=== PATIENT | male | born 1990 | race African-American/Black ===

== ENCOUNTER 2017-06-03 03:29 | Emergency (ER) | payer SELFPAY ==
[2017-06-03] MEDS ORDERED: HYDROCOD/APAP 5/325 PREPACK#6 BTL TAKEHOME ONE (03:33)
[2017-06-03] MEDS ORDERED: IBUPROFEN 800 MG TAB PO ONE (03:33)
[2017-06-03] MEDS ORDERED: HYDROCODONE/APAP 5/325 TAB PO ONE (03:33)
[2017-06-03 03:34] VITALS: TEMP 98.8
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
[2017-06-03 04:32] VITALS: BP 131/84; PULSE 85; RESP 18; O2SAT 94
== END 2017-06-03 04:55 | disposition home or self-care (01) ==
DX: S82.842A Displaced bimalleolar fracture of left lower leg, initial encounter for closed fracture (principal); W18.40XA Slipping, tripping and stumbling without falling, unspecified, initial encounter; Y99.8 Other external cause status; Y93.01 Activity, walking, marching and hiking

== ENCOUNTER 2017-11-11 16:07 | Inpatient (IN) | payer SELFPAY ==
[2017-11-11] MEDS ORDERED: IBUPROFEN 800 MG TAB PO ONE (16:58)
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
[2017-11-11] MEDS ORDERED: TDAP ADULT 0.5 ML INJ (BOOSTRIX) IM ONE (17:23)
[2017-11-11] MEDS ORDERED: ceFAZolin 2 GM in NS 100 ML IV ONE (17:24)
[2017-11-11] MEDS ORDERED: CEFAZOLIN 1 GM/DEXTROSE/50 ML BAG IV ONE ×2 (17:39→17:46)
[2017-11-11 18:20] LABS: PLATELET COUNT 280 10^3/uL (150-400)
[2017-11-11] MEDS ORDERED: ONDANSETRON 4 MG/2 ML VIAL IVP PRN ×2 (18:59→22:56)
[2017-11-11] MEDS ORDERED: D5W 1/2 NS W/ 20 KCl/L 1,000 ML IV SCH (19:00)
[2017-11-11] MEDS ORDERED: LR 1,000 ML IV SCH (19:00)
[2017-11-11] MEDS ORDERED: BACITRACIN 50,000 UNITS/10 ML SYR IRR ONE (21:31)
[2017-11-11] MEDS ORDERED: BUPIVACAINE 0.5% 30 ML SDV ONE (21:32)
--- NOTE | 2017-11-11 21:51 | PDANEPAE ---
ANE Past Medical History - Pulmonary History Hx Oxygen in Use at Home: No - Endocrine History Hx Diabetes: No ANE Review of Systems Review of Systems: ANE Patient History - Allergies Allergies/Adverse Reactions: Penicillins Allergy (Severe, Verified 11/11/17 16:30) - Home Medications Home Medications: NK [No Known Home Meds] 11/11/17 [Last Taken Unknown] - NPO status NPO Since - Liquids (Date): 11/11/17 NPO Since - Liquids (Time): 17:15 NPO Since - Solids (Date): 11/11/17 NPO Since - Solids (Time): 14:00 - Smoking Hx Smoking Status: Current every day smoker ANE Labs/Vital Signs - Labs Result Diagrams: 11/11/17 16:26 11/11/17 16:26 - Vital Signs Blood Pressure: 158/84 Heart Rate: 92 Respiratory Rate: 18 O2 Sat (%): 98 Height: 177.8 cm Weight: 85.729 kg ANE Physical Exam - Airway Neck exam: FROM Mallampati Score: Class 1 Mouth exam: normal dental/mouth exam - Pulmonary Pulmonary: no respiratory distress - Cardiovascular Cardiovascular: regular rate and rhythym - ASA Status ASA Status: II ANE Anesthesia Plan Anesthesia Plan: GA w LMA
[2017-11-11] MEDS ORDERED: RANITIDINE 50 MG/2 ML VIAL ONE (21:54)
[2017-11-11] MEDS ORDERED: fentaNYL 250 MCG/5 ML INJ ONE (21:54)
[2017-11-11] MEDS ORDERED: PROPOFOL 200 MG/20 ML VIAL ONE ×3 (21:54→22:34)
[2017-11-11] MEDS ORDERED: LIDOCAINE 2% 100 MG/5 ML SYR ONE (21:55)
[2017-11-11] MEDS ORDERED: METOCLOPRAMIDE 10 MG/2 ML VIAL ONE (21:55)
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
[2017-11-11] MEDS ORDERED: fentaNYL 100 MCG/2 ML INJ ONE ×2 (22:34→23:10)
[2017-11-11] MEDS ORDERED: MEPERIDINE 25 MG/ML SYR IVP PRN (22:56)
[2017-11-11] MEDS ORDERED: NALOXONE HCL 0.4 MG/ML INJ IVP PRN (22:56)
[2017-11-11] MEDS ORDERED: ALBUTEROL 3 ML DEYVIAL IH PRN (22:56)
--- NOTE | 2017-11-11 22:57 | POSTANESTH ---
Post Anesthetic Evaluation Cardiovascular Status: Similar to Pre-Op Cond Respiratory Status: Similar to Pre-op Cond. Level of Consciousness/Mental Status: Moderately Sleepy Pain Control: Adequate, Prn Tx Ordered Nausea/Vomiting Control: Adequate, Prn Tx Ordered Complications Possibly Related to Anesthesia: None Noted
[2017-11-11] MEDS: fentaNYL 100 MCG/2 ML INJ IVP PRN ×2 (23:11→23:19)
[2017-11-12] MEDS: oxyCODONE IR 5 MG TAB PO PRN ×3 (00:13→17:34)
[2017-11-12] MEDS: metroNIDAZOLE 500 MG TAB PO SCH ×3 (05:29→21:17)
--- NOTE | 2017-11-12 06:37 | SOAPPROG ---
SOAP Progress Note Assessment/Plan: Assessment: s/p i and d right hand abscess Plan: id consult continue iv abx for gross joint sepsis d/c home tomorrow when appropriate 11/12/17 06:35 Subjective: no co pain tolerable Objective: Vital Signs Temp Pulse Resp BP Pulse Ox 37.3 C 79 16 150/72 H 98 11/12/17 04:16 11/12/17 04:16 11/12/17 04:16 11/12/17 04:16 11/12/17 04:16 11/11/17 11/12/17 11/13/17 05:59 05:59 05:59 Intake Total 1140 Output Total 0 Balance 1140 dressing remains intact intact pdf,ehl intact digital flex ext decreased at ring finger intact sensation r,u aspect each digit ICD10 Worksheet Patient Problems: Problems Problem Status Onset Abscess of right hand excluding fingers and thumb Acute Cellulitis of right hand excluding fingers and thumb Acute Tenosynovitis of right hand Acute
--- NOTE | 2017-11-12 06:39 | PDIAF ---
- Diagnosis Diagnosis: right hand infection Code Status: Full Code - Medication Management Discharge Medications: Medications to Continue on Transfer NK [No Known Home Meds] 11/11/17 [Last Taken Unknown] Discharge Medications: Refer to the Discharge Home Medication list for PRN reason. - Orders Services needed: Registered Nurse Diet Recommendation: no restrictions on diet Diet Texture: Regular Texture Diet Activity/Weight Bearing Restrictions: daily dressing changes. may shower without bandage. no soaking or immersion. f/u at two weeks Additional Instructions: daily dressing changes may shower without bandage f/u at one week [facility] [place] [facility] seek attn for increasing pain, redness swelling or discharge - Follow Up Care Current Providers and Referrals: NONE *PRIMARY CARE P,. [Primary Care Provider] -
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
--- NOTE | 2017-11-12 10:49 | PDMN ---
Medical Necessity Medical necessity: M70 cellulitis: urgent I/D needed , IV abx for gross joint sepsis, ID consult pending,
[2017-11-12] MEDS ORDERED: ALTEPLASE 2 MG VIAL IVP PRN (11:21)
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
--- NOTE | 2017-11-12 16:15 | PDRADPN ---
Radiology Procedure Note Date of Procedure: 11/12/17 Radiologist: Nitish Lainez Anesthesia: LMA Pre-op Diagnosis: hand infection Post-op Diagnosis: same Indication: abx access Procedure: LUE SL PICC Finding(s): LUE basilic micropuncture access. tip at cavoatrial junction. 40cm length. ok to use Inf/Abcess present in the surg proc area at time of surgery?: No EBL: Minimal Complications: none
[2017-11-13] MEDS: oxyCODONE IR 5 MG TAB PO PRN (03:45)
[2017-11-13] MEDS: metroNIDAZOLE 500 MG TAB PO SCH ×2 (06:02→16:26)
[2017-11-13] MEDS ORDERED: cefTRIAXone 2 GM in STERILE WATER INJ 20 ML IV SCH (09:00)
--- NOTE | 2017-11-13 11:11 | PCMIDPN ---
Assessment/Plan: Assessment: Right hand septic arthritis 4th MCP. Streptococcus gordonii in culture. Culture not finalized yet. Currently on empiric ceftriaxone and metronidazole orally. Will continue the regimen of both drugs. Patient leave the PICC line yesterday. Will schedule him for outpatient infusions for the next 13 days. Will follow him up within the week and fruit canner whether to continue oral metronidazole given results upon culture finality. Plan: 1. Continue IV ceftriaxone 2 g daily. Will set up for total of 14 days from surgery in the infusion center. 2. Continue oral metronidazole 500 three times daily. This may be discontinued at 1st outpatient follow-up. 11/13/17 11:08 Subjective: Patient feels better. Decreased pain. Last oxycodone was yesterday. No fevers or chills. Tolerating ceftriaxone and oral Flagyl without issue. PICC line placed yesterday no complications. Objective: Ceftriaxone # 1 Metronidazole # 1 Vital Signs Temp Pulse Resp BP Pulse Ox 36.8 C 90 17 134/71 H 92 11/13/17 09:45 11/13/17 09:45 11/13/17 09:45 11/13/17 09:45 11/13/17 09:45 Microbiology 11/11/17 22:33 Gram Stain - Final Hand - Eswab 11/12/17 11/13/17 11/14/17 05:59 05:59 05:59 Intake Total 1140 1350 Output Total 0 Balance 1140 1350 ESR 8 MM/HR (0-15) 11/11/17 16:26 - Physical Exam General Appearance: WD/WN, alert, no apparent distress, non-toxic Respiratory: lungs clear, normal breath sounds, No respiratory distress Cardiac/Chest: regular rate, rhythm, No tachycardia Extremities: non-tender, No normal inspection (Right hand with surgical dressing intact. No strike through. No significant proximal erythema or swelling. Patient is able to move all digits. Neurologically intact with sensation distally as well.) Skin: normal color, warm/dry, No rash Neuro/Psych: alert, normal mood/affect, oriented x 3 ICD10 Worksheet Patient Problems: Problems Problem Status Onset Abscess of right hand excluding fingers and thumb Acute Cellulitis of right hand excluding fingers and thumb Acute Tenosynovitis of right hand Acute
--- NOTE | 2017-11-13 11:12 | SOAPPROG ---
SOAP Progress Note Assessment/Plan: Assessment: s/p i and d right hand abscess Plan: id consult continue iv abx for gross joint sepsis d/c home iv abx 11/12/17 06:35 11/13/17 11:10 Subjective: min pain better Objective: Vital Signs Temp Pulse Resp BP Pulse Ox 36.8 C 90 17 134/71 H 92 11/13/17 09:45 11/13/17 09:45 11/13/17 09:45 11/13/17 09:45 11/13/17 09:45 Microbiology 11/11/17 22:33 Gram Stain - Final Hand - Eswab 11/12/17 11/13/17 11/14/17 05:59 05:59 05:59 Intake Total 1140 1350 Output Total 0 Balance 1140 1350 dressing removed decreased swelling erythema mild purulence at surface of incision site no active drainage intact digital flex and ext restricted at ring finger to 4/5 strength ext ICD10 Worksheet Patient Problems: Problems Problem Status Onset Abscess of right hand excluding fingers and thumb Acute Cellulitis of right hand excluding fingers and thumb Acute Tenosynovitis of right hand Acute
--- NOTE | 2017-11-13 11:46 | ASMTLACE ---
LACE Length of stay for Answers: 2 days current admission Acuity / Level of Answers: Yes Care: Did the patient have an inpatient admission? Comorbidities - select Answers: Other Notes: cellulitis all that apply # of Emergency department Answers: 1-2 visits in the last 6 months Social determinants Answers: History of substance abuse (ETOH, street drugs, prescription drugs, etc.) Score: 10 Date Signed: 11/13/2017 11:45 AM Electronically Signed By:Sona Valdez LCSW
--- NOTE | 2017-11-13 12:11 | ASMTCMCOM ---
CM Note CM Note Notes: Pt will need IV ceftriaxone 3 gm for 2 weeks at DC. Pt will go to [facility]. Set pt up for 10Am for next 2 weeks. Provided him info for [facility]. Spoke with Kimberli about his Medicaid carmen. She said it will be up to two weeks until she hears back. She will contact pt then. Let pt know the details. Pt will likely DC today. Date Signed: 11/13/2017 12:10 PM Electronically Signed By:Sona Valdez LCSW
[2017-11-13 16:12] VITALS: BP 147/106
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
== END 2017-11-13 16:45 | disposition home or self-care (01) | DRG 506 ==
LOC: OBSVTOIN 18:59 → F3N 23:45 → F1N 11-12 15:48
PROVIDERS: ADMIT Orthopaedic Surgery; ATTEND Orthopaedic Surgery
PROC: 0R9U0ZZ Drainage of Right Metacarpophalangeal Joint, Open Approach (ICD-10-PCS; principal; 2017-11-11 22:00)
PROC: 02HV33Z Insertion of Infusion Device into Superior Vena Cava, Percutaneous Approach (ICD-10-PCS; 2017-11-12)
DX: M00.841 Arthritis due to other bacteria, right hand (principal); B95.4 Other streptococcus as the cause of diseases classified elsewhere; S61.254A Open bite of right ring finger without damage to nail, initial encounter; Y04.1XXA Assault by human bite, initial encounter; Y92.9 Unspecified place or not applicable; Z72.0 Tobacco use; Z88.0 Allergy status to penicillin; Z23 Encounter for immunization
CPT/HCPCS: 96365; C1751; J0690; J0696; J2001; J2270; J2405; J2704; J2765; J2780; J3010

== ENCOUNTER 2018-01-11 21:46 | Emergency (ER) | payer MEDICAID ==
[2018-01-11 21:50] VITALS: BP 149/85
--- NOTE | 2018-01-11 22:17 | EDPHY ---
H & P Smoking Status: Former smoker Time Seen by Provider: 01/11/18 21:59 HPI/ROS: CHIEF COMPLAINT: "I have a cyst on my lip" HISTORY OF PRESENT ILLNESS: 27-year-old immunocompetent male with no known history of cutaneous MRSA, up-to-date tetanus, complaining of 2 days of tender vesicular lesions and a fluctuant mass of the upper lip. He did recently receive a hair cut to his mustache. No fever or chills. No nausea or vomiting. PHYSICAL EXAM (Prior to examination, patient consented to physical exam, hands were washed and my usual and customary physical exam procedures followed) 1) GENERAL: Well-developed, well-nourished, alert and oriented. Appears to be in no acute distress. 2) HEAD: Normocephalic 3) HEENT: sclera anicteric 4) LUNGS: Breathing comfortably. 5) SKIN: On the patient's upper lip he has multiple bunched vesicular lesions consistent with impetigo. There is a fluctuant tender mass deep to this. It is nondraining. The gingiva is not affected. Facial features are symmetrical. Nasolabial folds are symmetrical. (Mikael Norwood) Constitutional: Initial Vital Signs Temperature (C) 37.0 C 01/11/18 21:47 Heart Rate 74 01/11/18 21:47 Respiratory Rate 18 01/11/18 21:47 Blood Pressure 149/85 H 01/11/18 21:47 O2 Sat (%) 96 01/11/18 21:47 O2 Delivery Mode Room Air Allergies/Adverse Reactions: Penicillins Allergy (Severe, Verified 01/11/18 21:49) Home Medications: Medication Instructions Recorded Cephalexin [Keflex] 500 mg PO TID 10 Days cap 01/11/18 Mupirocin 2% [Bactroban 2% Oint 1 carmen TOP BID #15 g 01/11/18 (RX)] Sulfamethox/Tmp 800/160 mg 1 tab PO BID@1000,2200 10 Days tab 01/11/18 [Bactrim Ds] MDM/Departure - MDM Procedures: Procedure: Needle aspiration Indication: Fluctuance of the upper lip Indications risks benefits discussed with patient. On the buccal aspect of the patient's upper lip I was able to appreciate a fluctuant mass. 1% lidocaine with epinephrine was introduced and subsequently 18 gauge needle was introduced and aspiration was negative. Patient tolerated procedure well (Mikael Norwood) Medications Given: Discontinued Medications Hydrocodone Bitart/Acetaminophen ([place] 5/325mg Prepack#6) 1 btl TAKEHOME EDNOW ONE Stop: 01/11/18 22:22 Last Admin: 01/11/18 22:39 Dose: 1 btl Cephalexin (Keflex 500 Mg Prepack#4) 1 btl TAKEHOME EDNOW ONE PRN Reason: Protocol Stop: 01/11/18 22:22 Last Admin: 01/11/18 22:40 Dose: 1 btl Trimethoprim/Sulfamethoxazole (Bactrim Ds Prepack#2) 1 btl TAKEHOME EDNOW ONE Stop: 01/11/18 22:22 Last Admin: 01/11/18 22:40 Dose: 1 btl ED Course/Re-evaluation: More than likely secondary to impetigo. Recommend he not puncture this area. As I am starting the patient on topical Bactroban, Keflex and Bactrim, recommend warm compresses. To return to ER should he develop new or worsening symptoms. Given follow-up information. I saw this patient independently based on established practice protocols. Care of patient under supervision of secondary supervising physician Dr Jimenes . (Mikael Norwood) PHYSICIAN DOCUMENTATION: The patient was evaluated and managed by the Physician Glass Forming Crew Member. My co- signature indicates that I have reviewed this chart and I agree with the findings and plan of care as documented. I am the secondary supervising physician. (Fawn Jimenes) - Depart Disposition: Home, Routine, Self-Care Clinical Impression: Impetigo, Laceration Condition: Good Instructions: Cephalexin (By mouth), Sulfamethoxazole/Trimethoprim (By mouth), Hydrocodone/Acetaminophen (By mouth), Impetigo (ED) Additional Instructions: Do not pick the area, do not squeeze or puncture the area. Prescriptions: Cephalexin [Keflex] 500 mg PO TID 10 Days cap Mupirocin 2% [Bactroban 2% Oint (RX)] 1 carmen TOP BID #15 g Sulfamethox/Tmp 800/160 mg [Bactrim Ds] 1 tab PO BID@1000,2200 10 Days tab Referrals: [facility],. [Clinic] - 1-2 days without fail
[2018-01-11] MEDS ORDERED: HYDROCOD/APAP 5/325 PREPACK#6 BTL TAKEHOME ONE (22:21)
[2018-01-11] MEDS ORDERED: CEPHALEXIN 500MG PREPACK#4 BTL TAKEHOME ONE (22:21)
[2018-01-11] MEDS ORDERED: SULFAMET/TMP DS PREPACK#2 BTL TAKEHOME ONE (22:21)
== END 2018-01-11 22:40 | disposition home or self-care (01) ==
PROC: 0H91XZZ Drainage of Face Skin, External Approach (ICD-10-PCS; principal; 2018-01-11)
DX: L01.00 Impetigo, unspecified (principal); Z87.891 Personal history of nicotine dependence

== ENCOUNTER 2018-04-14 14:14 | Emergency (ER) | payer MEDICAID ==
[2018-04-14 14:27] VITALS: BP 117/75
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
== END 2018-04-14 14:59 | disposition home or self-care (01) ==
PROC: 0H98XZZ Drainage of Buttock Skin, External Approach (ICD-10-PCS; principal; 2018-04-14)
DX: L02.31 Cutaneous abscess of buttock (principal)